=== PATIENT | female | born 1970 | race Caucasian/White ===

== ENCOUNTER 2016-10-21 22:30 | Emergency (ER) | payer MEDICAID, OTHER ==
[~2016-10-21] VITALS: Ht 172.7 cm; Wt 75.0 kg
[~2016-10-21 22:30] MED LIST: CYCL-36 PO; IBUP-238 PO
[2016-10-21 22:33] VITALS: BP 143/68; PULSE 83; RESP 18; TEMP 97.5; O2SAT 97
[2016-10-21] MEDS ORDERED: TETANUS/DIPHTHERIA TOXOID ADULT 0.5 ML VIAL IM ONE (22:45)
--- NOTE | 2016-10-21 22:45 | PD ---
HPI Chief Complaint: Laceration/Skin Injury Time Seen by Provider: 22:42 Travel History International Travel<30 days: No Contact w/Intl Traveler<30days: No Traveled to known affect area: No History of Present Illness HPI 46-year-old white female presents to emergency department with a laceration to her left foot from a knife which occurred prior to arrival. She states that she accidentally dropped a knife on her bare foot cutting the top of her foot. She states that the blood squirted. She has not had a tetanus shot over 5 years. Pain is mild. No alleviating factors. PFSH Past Medical History Narrative Medical Pneumonia Reproductive: Yes (GENITAL HERPES) Tetanus Vaccination: > 5 Years : 3 Para: 3 Tubal Ligation: Yes (11 YEARS AGO) Past Surgical History Abdominal Surgery: Yes (3 C SECTIONS) Section: Yes (X3) Social History Alcohol Use: Yes Tobacco Use: Yes (1PPD) Substance Use: No Allergies-Medications (Allergen,Severity, Reaction): Coded Allergies: E-Mycin (Verified Allergy, Mild, NAUSEA, 10/21/16) Reported Meds & Prescriptions Reported Meds & Active Scripts Active Flexeril (Cyclobenzaprine HCl) 10 Mg Tab 10 Mg PO TID Motrin (Ibuprofen) 800 Mg Tab 1 Tab PO Q8 Review of Systems Except as stated in HPI: all other systems reviewed are Neg Physical Exam Narrative GENERAL: This is a well-nourished, well-developed patient, in no apparent distress. SKIN: No rashes, ecchymoses or lesions. Warm and dry. HEAD: Atraumatic. Normocephalic. EYES: PERRL, EOMI, no discharge or injection. No scleral icterus. EARS: Clear NOSE: Nasal turbinates appear normal. THROAT: Mucosa pink and moist. Airway patent. NECK: Trachea midline. supple, moves head freely. LUNGS: Clear to auscultation. CV: Regular in rhythm. ABDOMEN: Soft nontender. EXT: No clubbing cyanosis or edema. Patient has a 4 mm laceration of the dorsal surface of the left foot. No deep structure injury. Neurovascular intact. Small hematoma. Data Data Last Documented VS Vital Signs Date Time Temp Pulse Resp B/P Pulse Ox O2 Delivery O2 Flow Rate FiO2 10/21/16 22:33 97.5 83 18 143/68 97 Orders Tetanus/Diphtheria Tox Adult (Tetanus/Di (10/21/16 22:45) MDM Medical Decision Making Medical Screen Exam Complete: Yes Emergency Medical Condition: Yes Medical Record Reviewed: Yes Differential Diagnosis MDM: High Differential diagnoses: Fracture, sprain, strain, dislocation, contusion, neurovascular injury Narrative Course Patient's tetanus status updated. The wound is clean. The patient's wound does not require suturing. No active bleeding. Diagnosis Primary Impression: left foot laceration-nonsutured Patient Instructions: General Instructions Additional Instructions: Rest. Elevation. Tylenol and Advil for pain. Daily wound care with soap, water, Neosporin. Follow-up with a medical doctor as needed. Return to the ER if any problems. Med/Other Pt SpecificInfo: Wound Care Disposition: DISCHARGE HOME Condition: Stable Virgilio Mendoza Oct 21, 2016 22:45
== END 2016-10-22 03:43 | disposition home or self-care (01) ==
LOC: NEPK 22:30
DX: S91.312A Laceration without foreign body, left foot, initial encounter (principal); W26.0XXA Contact with knife, initial encounter; Y93.89 Activity, other specified; Y92.000 Kitchen of unspecified non-institutional (private) residence as the place of occurrence of the external cause; Z23 Encounter for immunization; F17.210 Nicotine dependence, cigarettes, uncomplicated
CPT/HCPCS: 90471; 90714